=== PATIENT | female | born 1980 ===

== ENCOUNTER 2022-07-17 08:49 | Outpatient (CLI) | payer OTHER ==
[~2022-07-17 08:49] MED LIST: INTESTINEX680 MG PO; PLAVIX75 MG PO
== END 2022-07-17 09:02 | disposition home or self-care (01) ==
LOC: SONOGRAMA 08:49
PROVIDERS: ATTEND Pathology Anatomic Pathology & Clinical Pathology
DX: D44.0 Neoplasm of uncertain behavior of thyroid gland (principal); D34 Benign neoplasm of thyroid gland; E04.9 Nontoxic goiter, unspecified; E07.9 Disorder of thyroid, unspecified; E04.2 Nontoxic multinodular goiter

== ENCOUNTER 2022-08-11 08:59 | Outpatient (CLI) | payer OTHER | END 2022-08-11 09:03 | disposition home or self-care (01) | LOC: SONOGRAMA 08:59 | PROVIDERS: ATTEND Pathology Anatomic Pathology | DX: D34 Benign neoplasm of thyroid gland (principal); E07.9 Disorder of thyroid, unspecified; E04.1 Nontoxic single thyroid nodule ==

== ENCOUNTER 2024-07-26 09:39 | Outpatient (CLI) | payer OTHER | END 2024-07-26 09:41 | disposition home or self-care (01) | LOC: SONOGRAMA 09:39 | DX: E88.2 Lipomatosis, not elsewhere classified (principal) ==

== ENCOUNTER 2024-08-30 06:33 | Day surgery (SDC) | payer OTHER ==
[2024-08-24 08:35] LABS: URINE APPEARANCE Clear; URINE BILIRRUBIN Negative (NEGATIVE); URINE BLOOD Negative; URINE COLOR Yellow; URINE GLUCOSE Negative (NEGATIVE); URINE KETONE Negative (NEGATIVE); URINE LEUKOCYTE Negative; URINE NITRATE Negative; URINE PROTEIN Negative (NEGATIVE); URINE UROBILINOGEN 0.2 E.U./dl
[2024-08-24 08:37] LABS: HEMOGLOBIN 12.4 g/dL (12.0-15.00); MEAN CELL VOLUME 91.1 fL (80.00-100.00); MEAN CORPUSCULAR HEMOGLOBIN 31.3 pg (27.00-32.0); MEAN CORPUSCULAR HGB CONC 34.4 g/dl (32.0-36.0); PLATELET COUNT 315 K/uL (150-450); RED BLOOD COUNT 3.96 M/uL (4.00-6.00); RED CELL DISTRIBUTION WIDTH 13.6 % (11.5-14.5)
[2024-08-24 08:38] LABS: URINE EPITHELIAL CELLS 17.3 uL (0.0-38.8); URINE RBC 5.7 uL (0.0-20.8); URINE WBC 2.3 uL (0.0-23.2)
[2024-08-24 09:10] LABS: INR 0.98; PARTIAL THROMBOPLASTIN TIME 26.9 SECONDS (22.0-34.0); PROTHROMBIN TIME 10.7 SECONDS (9.0-11.5)
[2024-08-24 09:22] LABS: ALBUMIN 3.5 gm/dL (3.4-5.0); BILIRUBIN TOTAL 1.15 mg/dL (0.3-1.2); CALCIUM 8.5 mg/dL (8.5-10.1); CREATININE SERUM 0.65 mg/dL (0.55-1.02); GFR 98.57; POTASSIUM 4.51 mEq/L (3.5-5.1); TOTAL PROTEIN 6.5 gm/dL (6.4-8.2); TSH 3.16 uIU/mL (0.358-3.74)
[~2024-08-30 06:33] MED LIST changes: +SYNTHROID50 MCG PO; +TOPROL XL50 M1 PO
[2024-08-30] MEDS ORDERED: CEFAZOLIN SODIUM 1,000 MG VIAL IV ONE (11:00)
[2024-08-30] MEDS ORDERED: CEFAZOLIN SODIUM 1,000 MG VIAL IV SCH (11:30)
[2024-08-30] MEDS ORDERED: FAMOTIDINE/PF 20 MG/10 ML SYRINGE IV SCH (11:30)
[2024-08-30] MEDS ORDERED: FAMOTIDINE/PF 20 MG/2 ML VIAL ONE (12:44)
[2024-08-30] MEDS ORDERED: CEFAZOLIN SODIUM 1,000 MG VIAL ONE (12:44)
== END 2024-08-30 13:30 | disposition home or self-care (01) ==
LOC: CIR.AMB 06:33
PROVIDERS: ATTEND Specialist
DX: D21.6 Benign neoplasm of connective and other soft tissue of trunk, unspecified (principal); E03.8 Other specified hypothyroidism; I10 Essential (primary) hypertension; Z88.6 Allergy status to analgesic agent